=== PATIENT | female | born 1985 | race Caucasian/White ===

== ENCOUNTER 2017-11-05 23:23 | Emergency (ER) | payer OTHER ==
[2017-11-06] MEDS ORDERED: IBUPROFEN 600 MG TABLET (FP) PO ONE ×2 (00:55→01:28)
[2017-11-06] MEDS ORDERED: PENICILLIN G BENZATHINE 1,200,000 UNIT/2 ML PFS IM ONE (01:24)
--- NOTE | 2017-11-06 01:24 | PDOC ---
History of Present Illness - General Chief Complaint: Cold Symptoms Stated Complaint: COLD SYMPTOMS Time Seen by Provider: 11/06/17 00:23 History Source: Patient - History of Present Illness Initial Comments: 11/06/17 01:18 32 year old female with right sided throat pain, ear pain and neck pain. denies fever / chills NVD, abdominal pain, urinary symptoms Past History - Past Medical History Allergies/Adverse Reactions: Allergies Allergy/AdvReac Type Severity Reaction Status Date / Time No Known Allergies Allergy Verified 11/06/17 01:26 Home Medications: Ambulatory Orders Carbamide Peroxide [Debrox] 2 ml OT BID #1 bottle 11/06/17 Review of Systems - Review of Systems Able to Perform ROS?: Yes Is the patient limited Yi proficient: No HEENTM: Yes: Ear Pain, Throat Pain Respiratory: Yes: Cough *Physical Exam - Physical Exam General Appearance: Yes: Appropriately Dressed HEENT: positive: Other (b/l ear cerumen impaction) Cardiovascular: positive: Regular Rhythm, Regular Rate ED Treatment Course - ADDITIONAL ORDERS Additional order review: 11/06/17 00:05 Group A Strep Rapid Antigen - Preliminary Throat *DC/Admit/Observation/Transfer Diagnosis at time of Disposition: Strep pharyngitis, Impacted cerumen of both ears - Discharge Dispostion Disposition: HOME - Prescriptions Prescriptions: Carbamide Peroxide [Debrox] 2 ml OT BID #1 bottle - Referrals Referrals: Sammi Day MD [Primary Care Provider] - - Patient Instructions Printed Discharge Instructions: Strep Throat Additional Instructions: gargle with Warm salty water Take Tylenol or ibuprofen for pain Instill Debrox Twice a day for 10 days - Post Discharge Activity Forms/Work/School Notes: Back to Work
[2017-11-06 01:25] VITALS: BP 114/81; PULSE 84; TEMP 97.5; BMI 23.8
[2017-11-06] MEDS ORDERED: PENICILLIN G BENZATHINE 2,400,000 UNIT/4 ML PFS ONE (02:20)
== END 2017-11-06 02:55 | disposition home or self-care (01) ==
LOC: JER 23:23
DX: J02.0 Streptococcal pharyngitis (principal); B95.0 Streptococcus, group A, as the cause of diseases classified elsewhere; H61.23 Impacted cerumen, bilateral
CPT/HCPCS: 87070; 87077; 87430; 99281-25

== ENCOUNTER 2018-11-10 14:40 | Emergency (ER) | payer OTHER | END 2018-11-10 15:40 | disposition home or self-care (01) | LOC: JERFT 14:40 ==

== ENCOUNTER 2021-10-06 01:13 | Emergency (ER) | payer OTHER ==
[2021-10-06 01:51] VITALS: BP 134/88; PULSE 76; TEMP 98.3; BMI 23.9
[2021-10-06] MEDS ORDERED: MAG HYDROX/AL HYDROX/SIMETH 30 ML UNIT-DOSE CUP PO ONE (02:16)
[2021-10-06] MEDS ORDERED: FAMOTIDINE 20 MG TABLET PO ONE (02:16)
[2021-10-06] MEDS ORDERED: FAMOTIDINE 20 MG TABLET ONE (02:18)
[2021-10-06] MEDS ORDERED: MAG HYDROX/AL HYDROX/SIMETH 30 ML UNIT-DOSE CUP ONE (02:18)
[2021-10-06 02:32] LABS: URINE APPEARANCE CLEAR; URINE BILIRUBIN NEGATIVE (NEGATIVE); URINE COLOR YELLOW; URINE GLUCOSE (UA) 3+ (NEGATIVE); URINE KETONE NEGATIVE (NEGATIVE); URINE LEUK ESTERASE NEGATIVE (NEGATIVE); URINE NITRITE NEGATIVE (NEGATIVE); URINE PROTEIN NEGATIVE (NEGATIVE); URINE UROBILINOGEN 0.2 mg/dL (0.2-1.0)
[2021-10-06 03:12] LABS: HCG,QUALITATIVE URINE Negative
== END 2021-10-06 04:25 | disposition home or self-care (01) ==
LOC: JER 01:13
DX: R10.84 Generalized abdominal pain (principal)
CPT/HCPCS: 81003; 84703; 87086; 99283-25